=== PATIENT | male | born 1995 | race Caucasian/White ===

== ENCOUNTER 2016-06-10 19:49 | Emergency (ER) | payer BC, OTHER ==
[~2016-06-10] VITALS: Ht 185.4 cm; Wt 131.2 kg
[~2016-06-10 19:49] MED LIST: HYDR-2013 PO; IBUP-793 PO
[2016-06-10] MEDS ORDERED: ONDANSETRON 2 MG/ML (Z0FRAN) 2 ML VIAL IV ONE ×2 (20:30→22:35)
[2016-06-10] MEDS ORDERED: HYDROmorphone 1 MG/ML (DILAUDID) SYRINGE IV PRN (20:30)
[2016-06-10] MEDS ORDERED: SODIUM CHLORIDE FLUSH 3 ML SYR IV PRN (20:30)
[2016-06-10] MEDS ORDERED: SODIUM CHLORIDE FLUSH 10 ML SYR IV PRN (20:30)
[2016-06-10 20:50] LABS: BASOPHILS % (AUTO) 0 % (0-2); EOSINOPHILS % (AUTO) 0 % (0-4); MEAN CORPUSCULAR HEMOGLOBIN 30.6 PG (26.0-34.0); MEAN CORPUSCULAR VOLUME 86 FL (80-100); MEAN PLATELET VOLUME 10.1 FL (6.0-9.5); MONOCYTES % (AUTO) 7 % (3-11); NEUTROPHILS # (AUTO) 11.4 X10^3; NEUTROPHILS % (AUTO) 85 % (51-67); PLATELET COUNT 260 10^3uL (150-450); WHITE BLOOD COUNT 13.47 10^3uL (4.0-11.0)
[2016-06-10 20:57] LABS: ALBUMIN 4.7 g/dL (3.4-5.0); ANION GAP 17.7 MEQ/L (3-15); CALCULATED IONIZED CALCIUM 3.8 mg/dL (3.8-4.6); TOTAL PROTEIN 8.2 g/dL (6.4-8.5)
[2016-06-10 21:21] LABS: BILIRUBIN,URINE Negative (Negative); CLARITY,URINE Clear; COLOR,URINE Yellow; GLUCOSE, URINE (UA) Negative (Negative); LEUKOCYTE ESTERASE ,URINE Negative (Negative); UROBILINOGEN,URINE 0.2 mg/dL (0.2-1.0)
[2016-06-10 21:24] LABS: MEAN CORPUSCULAR HGB CONC 35.6 g/dL (31.0-37.0)
[2016-06-10 21:29] LABS: RBC,URINE None Seen /HPF; URINE CENTRIFUGED VOLUME 12 mL
[2016-06-10 23:01] VITALS: BP 111/49
--- NOTE | 2016-06-11 08:36 | Diagnostic Imaging Report ---
INDICATION: Right upper quadrant pain, 7 hours duration. FINDINGS: There are no suspicious calcifications. No abnormal fecal loading. No small or large bowel dilatation. No free air. No differential air/fluid levels. IMPRESSION: Unremarkable supine and upright abdominal films. Dictated by: Dictated on workstation # [id number]
== END 2016-06-10 23:06 | disposition home or self-care (01) ==
LOC: ED 19:51
DX: R10.11 Right upper quadrant pain (principal)
CPT/HCPCS: 36415; 74020; 80053; 81003; 81015; 82150; 83690; 85025; 96361; 96374; 96375; 96376; 99284; J1170; J2405; J7030; 99283

== ENCOUNTER → 2016-06-11 | Outpatient (CLI) | payer BC ==
--- NOTE | 2016-06-11 11:55 | Diagnostic Imaging Report ---
PROCEDURE: US Gallbladder. TECHNIQUE: Multiple real-time grayscale images were obtained over the right upper quadrant in various projections. INDICATION: Right upper quadrant abdominal pain. COMPARISON: None. FINDINGS: The size and echogenicity of liver is normal. There is no mass or intrahepatic biliary duct dilatation. Common bile duct is normal at 4 mm. There was no cholelithiasis or cholecystitis. Portal hepatic venous flow is normal. Visualized pancreas and right kidney normal. There was no ascites. IMPRESSION: Negative right upper quadrant ultrasound. Report was called to Gely/RN Dr. Lopez by [email or web address] at 11:55 am. Dictated by: Dictated on workstation # [id number]
== END ==
LOC: RAD 10:40
PROVIDERS: ATTEND Family Medicine
DX: R10.11 Right upper quadrant pain (principal)
CPT/HCPCS: 76705